=== PATIENT | male | born 1985 | race Caucasian/White ===

== ENCOUNTER 2016-11-19 01:03 | Emergency (ER) | payer OTHER ==
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
[~2016-11-19 01:03] MED LIST: ACYCLOVIR400 MG PO; AUGMENTIN PO; CELEXA20 MG PO; FLEXERIL10 MG PO; ORUDIS75 M1 DOB; PHENOL-SODIUM180 ML MM
[2016-11-19 01:48] LABS: BASOPHIL# 0.2 X10e3 (0-0.3); BASOPHIL% 0.9 % (0-2.5); EOSINOPHIL# 0.3 X10e3 (0-0.7); EOSINOPHIL% 1.6 % (0.0-7.0); HEMATOCRIT 43.8 % (38.0-50.0); HEMOGLOBIN 14.7 gm/dL (13.0-16.0); LYMPHOCYTE# 3.6 X10e3 (1.0-3.5); LYMPHOCYTE% 20.5 % (17.0-45.0); MEAN CELL VOLUME 93.9 FL (83-96); MEAN CORPUSCULAR HEMOGLOBIN 31.6 PG (28-34); MEAN CORPUSCULAR HGB CONC 33.6 g/dL (30-36); MEAN PLATELET VOLUME 7.9 FL (6.5-11.5); MONOCYTE# 0.7 X10e3 (0-1.0); NEUTROPHIL# 12.9 X10e3 (1.5-7.1); PLATELET COUNT 258 X10e3 (140-420); RED BLOOD COUNT 4.67 X10e (3.90-5.60); RED CELL DISTRIBUTION WIDTH 13.4 % (11.0-15.5); WHITE BLOOD COUNT 17.7 X10e3 (4.0-10.5)
[2016-11-19 01:49] LABS: DIFF IND YES
[2016-11-19 02:07] LABS: ALBUMIN SERUM 4.6 g/dL (3.5-5.0); ALKALINE PHOSPHATASE 62 U/L (32-92); ALT (SGPT) 13 U/L (10-40); AST (SGOT) 23 U/L (10-42); BILIRUBIN, DIRECT 0.1 mg/dL (0.0-0.2); BILIRUBIN,INDIRECT 0.5 mg/dL (0.0-0.9); BILIRUBIN,TOTAL 0.6 mg/dL (0.2-2.0); BLOOD UREA NITROGEN 12 mg/dL (9-23); CARBON DIOXIDE 19 mmol/L (22-31); CHLORIDE 103 mmol/L (100-111); GLOM FILT RATE Estimated 99.2 mL/min (>60); GLUCOSE FASTING 110 mg/dL (70-110); PROTEIN TOTAL SERUM 7.7 g/dL (6.0-8.3); SODIUM 136 mmol/L (135-145)
[2016-11-19 02:10] LABS: ALCOHOL BLOOD <5 mg/dL (0); PLATELET ESTIMATE NORMAL (NORMAL); RBC NORMAL YES
[2016-11-19 05:24] LABS: URINE SOURCE CLEAN CATCH
[2016-11-19 05:43] LABS: AMPHETAMINE NEG (NEG); BARBITURATES NEG (NEG); BENZODIAZEPINES NEG (NEG); COCAINE NEG (NEG); MARIJUANA POS (NEG); OPIATES NEG (NEG); TRICYCLIC ANTIDEPRESSANTS NEG (NEG); U METHADONE NEG (NEG)
[2016-11-19 06:27] LABS: URINE APPEARANCE CLEAR; URINE BILIRUBIN NEG (NEG); URINE BLOOD NEG (NEG); URINE COLOR YELLOW; URINE GLUCOSE NEG (NEG); URINE KETONE NEG (NEG); URINE LEUKOCYTE ESTERASE NEG (NEG); URINE NITRATE NEG (NEG); URINE PH 6.5 (5-8); URINE PROTEIN NEG (NEG); URINE UROBILINOGEN 0.2 MG/DL (NEG)
[2016-11-19 06:30] LABS: CULTURE INDICATED? NO
== END 2016-11-19 06:48 | disposition home or self-care (01) ==
LOC: CED 01:03
PROVIDERS: Emergency Medicine
DX: S82.51XA Displaced fracture of medial malleolus of right tibia, initial encounter for closed fracture (principal); F17.200 Nicotine dependence, unspecified, uncomplicated; Z23 Encounter for immunization; V86.99XA Unspecified occupant of other special all-terrain or other off-road motor vehicle injured in nontraffic accident, initial encounter; Y92.410 Unspecified street and highway as the place of occurrence of the external cause
CPT/HCPCS: 29515; 36415; 70450; 71010; 72040; 73610; 73630; 74177; 80048; 80076; 80307; 81003; 85025; 90471; 90715; 96361; 96374; 99284; G0480; J1170; Q9967

== ENCOUNTER 2016-11-21 14:49 | Observation (INO) | payer OTHER ==
--- NOTE | ~2016-11-21 | CR18 ---
[facility] A Service of [facility] RADIOLOGY TEXT RESULTS PATIENT: OMID MEJÍA V LOCATION: [facility] 448-01 : 83 UNIT #: [id number] AGE: [address]: Dada Slaughter MD SEX: M ORDER DR: [id number] [place] [id number] [facility]. [place], [place] [address] [id number] I MR#: [id number] Acc #: [id number] NAME: OMID MEJÍA V. : 1985 SEX: M STUDY DATE/TIME: 11/21/2016 20:23 UNIT: [facility] ROOM: [facility] STUDY DESCRIPTION: CR Ankle 2 Views Rt Attending Physician: Dada Slaughter M.D. Referring Physician: Dada Slaughter M.D. Ordering Physician: Dada Slaughter M.D. Primary Care Physician: No Primary Care Physician MEDICAL IMAGING REPORT This report is preliminary unless electronic signature is present EXAMINATION Intraoperative fluoroscopic views of the right ankle. DATE 11/21/2016 HISTORY Right ankle open reduction internal fixation. COMPARISON Right ankle radiographs, 11/19/2016. FINDINGS 3 spot intraoperative fluoroscopic views were obtained of the right ankle during open reduction internal fixation procedure by Dr. Slaughter. Fluoroscopy time 25 seconds was documented by the technologist. A plate with multiple screws is seen stabilizing the medial malleolar fracture in satisfactory alignment for healing. Transversely oriented nondisplaced fracture of the lateral malleolus, unchanged compared to the preoperative radiographs. The ankle joint appears satisfactorily aligned. Please refer to the report for additional findings and recommendations. Dictated by... Trinity Matthew M.D. THIS IS AN ELECTRONICALLY VERIFIED REPORT Trinity Matthew M.D. at 11/22/2016 10:06 AM MARQUES/dior TD: 11/22/2016 08:47 JOB #: [id number] [facility] A Service [facility] RADIOLOGY TEXT RESULTS PATIENT: OMID MEJÍA V LOCATION: [facility] 448-01 : 83 UNIT #: [id number] AGE: [address]: Dada Slaughter MD SEX: M ORDER DR: MEDICAL IMAGING REPORT Page 1 of 1 COPY
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
[2016-11-21] MEDS ORDERED: PERCOCET5/325 PO (15:10)
[2016-11-22 03:33] LABS: BASOPHIL# 0.1 X10e3 (0-0.3); EOSINOPHIL# 0.4 X10e3 (0-0.7); EOSINOPHIL% 3.9 % (0.0-7.0); HEMATOCRIT 40.3 % (38.0-50.0); HEMOGLOBIN 13.5 gm/dL (13.0-16.0); LYMPHOCYTE# 2.6 X10e3 (1.0-3.5); MEAN CORPUSCULAR HEMOGLOBIN 31.6 PG (28-34); MEAN CORPUSCULAR HGB CONC 33.6 g/dL (30-36); MEAN PLATELET VOLUME 7.9 FL (6.5-11.5); MONOCYTE# 0.9 X10e3 (0-1.0); MONOCYTE% 8.1 % (3.0-12.0); NEUTROPHIL# 6.8 X10e3 (1.5-7.1); PLATELET COUNT 202 X10e3 (140-420); RED BLOOD COUNT 4.29 X10e (3.90-5.60); RED CELL DISTRIBUTION WIDTH 13.2 % (11.0-15.5); WHITE BLOOD COUNT 10.8 X10e3 (4.0-10.5)
[2016-11-22 03:35] LABS: DIFF IND NO
[2016-11-22 04:08] LABS: ALBUMIN SERUM 3.4 g/dL (3.5-5.0); BILIRUBIN,TOTAL 0.7 mg/dL (0.2-2.0); BUN/CREATININE RATIO 8.88; CALCIUM SERUM 8.7 mg/dL (8.4-10.2); CREATININE SERUM 0.9 mg/dL (0.6-1.4); GLOM FILT RATE Estimated 112.6 mL/min (>60); POTASSIUM 3.6 mmol/L (3.5-5.1); PROTEIN TOTAL SERUM 6.2 g/dL (6.0-8.3)
== END 2016-11-22 15:19 | disposition home or self-care (01) | DRG 563 ==
LOC: CSUR 14:49 → C4B 15:15 → CPACUOF 15:15 → C4B 15:29 → CSUR 15:29 → CPACUOF 15:29 → CSUR 17:30 → C4B 22:26 → CPACUOF 22:26 → C4B 22:26
PROVIDERS: Orthopaedic Surgery
DX: S82.54XA Nondisplaced fracture of medial malleolus of right tibia, initial encounter for closed fracture (principal); F17.200 Nicotine dependence, unspecified, uncomplicated
CPT/HCPCS: 73600; 76000; 80053; 85025; 96374; 96375; 96376; 97161; C1713; G0378; J0690; J2250; J2270; J2405; J3010